=== PATIENT | female | born 1990 | race Caucasian/White ===

== ENCOUNTER 2023-09-13 13:22 | Emergency (ER) | payer MEDICAID ==
[2023-09-13 13:22] VITALS: TEMP 97
[2023-09-13 13:26] VITALS: BP 121/87; PULSE 81; RESP 16; O2SAT 99
[2023-09-13] MEDS: cefTRIAXone SOD 1,000 MG VL IM ONE (16:46)
[2023-09-13] MEDS: KETOROLAC TROMETH 30 MG/ML 1ML VIAL IM ONE (16:46)
[2023-09-13] MEDS ORDERED: AMOX875T4 PO (17:11)
== END 2023-09-13 17:12 | disposition home or self-care (01) ==
LOC: EEVIPCON 13:22 → ER 13:22
DX: K04.7 Periapical abscess without sinus (principal)
CPT/HCPCS: 96372; 99284; J0696; J1885

== ENCOUNTER 2023-09-14 14:49 | Emergency (ER) | payer MEDICAID ==
[~2023-09-14] VITALS: Ht 162.6 cm; Wt 59.4 kg
[~2023-09-14 14:49] MED LIST: AMOX875T4 PO
[2023-09-14 14:53] VITALS: BP 142/79; PULSE 107; RESP 18; TEMP 98.4; O2SAT 98
[2023-09-14] MEDS: KETOROLAC TROMETH 30 MG/ML 1ML VIAL IM ONE (17:08)
== END 2023-09-14 17:22 | disposition home or self-care (01) ==
LOC: ER 14:49 → EEVIPCON 14:49 → ER 17:22
DX: K04.7 Periapical abscess without sinus (principal); Z79.2 Long term (current) use of antibiotics
CPT/HCPCS: 96372; 99283; J1885

== ENCOUNTER 2024-06-03 10:26 | Emergency (ER) | payer MEDICAID ==
[~2024-06-03] VITALS: Ht 162.6 cm; Wt 54.7 kg
--- NOTE | 2024-06-03 11:15 | ED.PDOC ---
SOB-HPI HPI Comments A 34 YEAR OLD FEMALE PRESENTS TO THE ED WITH COMPLAINT OF COUGH AND CONGESTION. PATIENT STATES HE HAS BEEN EXPERIENCING COUGH, NASAL CONGESTION, AND A MILD SORE THROAT FOR THE PAST 5 DAYS. PATIENT REPORTS SHE HAS BEEN TAKING PNYJ-DFT-OSDUKIN MEDICATIONS WITH NO IMPROVEMENT. PATIENT DENIES FEVER, CHILLS, SHORTNESS OF BREATH, CHEST PAIN, ABDOMINAL PAIN, NAUSEA, VOMITING, HEADACHE, OR OTHER COMPLAINTS. NO OTHER SYMPTOMS OR MODIFYING FACTORS AT THIS TIME. PATIENT IS ALERT, ORIENTED X 4, AND HAS STEADY GAIT. Chief Complaint: Flu like Time Seen by MD: 10:32 Primary Care Provider: BLAISE Reviewed notes: Nurses Notes, Medications, Allergies Information Source: Patient Mode of Arrival: Ambulatory Severity: Moderate Timing: Days Duration: Since onset, Days Context: Spontaneous Onset PE Risk Factors: None History of: Recent URI Prehospital treatment: None Modifying Factors: Nothing Associated Signs and Symptoms: Cough, Nasal Congestion, Sore Throat If cough with SOB: Non-Productive Past Medical History PAST MEDICAL HISTORY: Denies Surgical History: Denies all surgeries BRAND STRATEGY MANAGER History: No Pertinent BRAND STRATEGY MANAGER History Family History Family History: Reviewed,noncontributory to illness, No family hx of Cancer, No family hx of DM, No family hx of Heart curt, No family hx of HTN, No family hx ofKidney curt, No family hx of Liver curt, No family hx of Lung curt, No family hx of Stroke Social History Smoker: Non-Smoker Alcohol: Denies ETOH Use Drugs: Denies Drug Use Lives In: Home Constitutional: denies: chills, diaphoresis, fatigue, fever, malaise, sweats, weakness, others EENTM: reports: nose congestion, throat pain; denies: blurred vision, double vision, ear bleeding, ear discharge, ear drainage, ear pain, ear ringing, eye pain, eye redness, hearing loss, mouth pain, mouth swelling, nasal discharge, nose bleeding, nose pain, photophobia, tearing, throat swelling, voice changes, others Respiratory: reports: cough; denies: hemoptysis, orthopnea, SOB at rest, shortness of breath, SOB with excertion, stridor, wheezing, others Cardiovascular: denies: chest pain, dizzy spells, diaphoresis, Dyspnea on exertion, edema, irregular heart beat, left arm pain, lightheadedness, palpitations, PND, syncope, others Gastrointestinal: denies: abdomen distended, abdominal pain, blood streaked bowels, constipated, diarrhea, dysphagia, difficulty swallowing, hematemesis, melena, nausea, poor appetite, poor fluid intake, rectal bleeding, rectal pain, vomiting, others Genitourinary: denies: abnormal vagina bleeding, burning, dyspareunia, dysuria, flank pain, frequency, hematuria, incontinence, pain, , vagina discharge, urgency, others Neurological: denies: dizziness, fainting, headache, left sided numbness, left sided weakness, numbness, paresthesia, pre-existing deficit, right sided numbness, right sided weakness, seizure, speech problems, tingling, tremors, weakness, others Musculoskeletal: denies: back pain, gout, joint pain, joint swelling, muscle pain, muscle stiffness, neck pain, others Integumetry: denies: bruises, change in color, change in hair/nails, dryness, laceration, lesions, lumps, rash, wounds, others Allergic/Immunocompromised: denies: Difficulty Healing, Frequent Infections, Hives, Itching, others Hematologic/Lymphatic: denies: anemia, blood clots, easy bleeding, easy bruising, swollen glands, others Endocrine: denies: excessive hunger, excessive sweating, excessive thirst, excessive urination, flushing, intolerance to cold, intolerance to heat, unexplained weight gain, unexplained weight loss, others Psychiatric: denies: anxiety, bipolar disorder, depression, hopeless, panic disorder, schizophrenia, sleepless, suicidal, others All Other Systems: Reviewed and Negative Physical Exam General Appearance: No Apparent Distress, Normal HEENT: PERRL/EOMI, Pharyngeal Erythema (VESICLE PHARYNX. ), TMs Normal Neck: Full Range of Motion, Non-Tender, Normal, Normal Inspection Respiratory: Chest Non-Tender, Expiration, No Accessory Muscle Use, No Respiratory Distress, Rhonchi Cardiovascular: No Edema, No JVD, No Murmur, No Gallop, Normal Peripheral Pulses, Regular Rate/Rhythm Breast Exam: Deferred Gastrointestinal: No Organomegaly, Non Tender, No Pulsatile Mass, Normal Bowel Sounds, Soft Genitalia: Deferred Pelvic: Deferred Rectal: Deferred Extremities: No calf tenderness, Normal capillary refill, Normal inspection, Normal range of motion, Non-tender, No pedal edema Musculoskeletal : Apperance: Normal Neurologic: Alert, security controls assessor II-XII nml as Tested, No Motor Deficits, Normal Affect, Normal Mood, No Sensory Deficits Cerebellar Function: Normal Reflexes: Normal Skin: Dry, Normal Color, Warm Peripheral Pulses: 2+ carotid (R), 2+ carotid (L) Lymphatic: No Adenopathy Was a procedure done? Was a procedure done?: No Differential Dx Differential Diagnosis: Bronchitis, Pneumonia, Sinusitis, Allergic Rhinitis, Otitis Media, Pharyngitis, URI, Other (COVID-19) X-Ray, Labs, Meds, VS Vital Signs Date Time Temp Pulse Resp B/P (MAP) Pulse Ox O2 Delivery O2 Flow Rate FiO2 06/03/24 11:23 98.1 118 16 123/81 (95) 98 Lab Test 06/03/24 11:20 Range/Units SARS-CoV-2 Antigen (Rapid) Negative NEGATIVE CHEST RADIOGRAPH Indication: COUGH Technique: Frontal and lateral view of the chest was obtained Comparison: None FINDINGS: Lines and Tubes: None Lungs: Clear Pleura: No effusion. No pneumothorax. Cardiomediastinal contours: Unremarkable Bones: Unremarkable IMPRESSION: No evidence of acute disease. ATED BY: NIGEL DE JESUS MD DICTATED DATE/TIME: 06/03/24 1141 SIGNED BY: NIGEL DE JESUS MD SIGNED DATE/TIME: 06/03/24 1141 CC: X-Ray, Labs, Meds, VS Comment LABS ORDERED: COVID-19 ANTIGEN REVIEWED AND INTERPRETED RESULTS: NEGATIVE Images Reviewed?: Images reviewed and evaluated by me Time of 1ST Reevaluation: 12:26 Reevaluation 1ST: Improved Patient Education/Counseling: Diagnosis, Treatment, Need For Follow Up Family Education/Counseling: Diagnosis, Treatment, Need For Follow Up Medical Screening: No EMC Exist At This Time Departure 1 Departure Time of Disposition: 12:26 Impression: Primary Impression: Acute bronchitis Qualified Codes: J20.9 - Acute bronchitis, unspecified Disposition: HOME / SELF CARE / HOMELESS Condition: Stable Additional Instructions: FOLLOW-UP WITH PCP IN 1 TO 2 DAYS. TAKE MEDICATIONS PRESCRIBED. RETURN TO ED FOR ANY NEW OR WORSENING SYMPTOMS. e-Prescriptions Promethazine-Dm (Promethazine Dm 6.25-15 mg/5Ml) 1 Gin Gin 5 ML PO TID, #180 ML Prov: ALEJANDRA STEVENS 06/03/24 Azithromycin (ZITHROMAX TABLET) 250 Mg Tb 250 MG PO DAILY, #6 TAB Prov: ALEJANDRA STEVENS 06/03/24 Discharged With: Self Critical Care Note Critical Care Time?: No Stability Stability form required: No Heart Score Heart Score: Heart Score Response (Comments) Value History N/A 0 EKG N/A 0 Age N/A 0 Risk Factors N/A 0 Troponin N/A 0 Total 0 I personally scribed for ALEJANDRA STEVENS ([email or web address]) on 06/03/24 at 11:15. Electronically submitted by Tacho Metz ([email or web address]). I personally scribed for ALEJANDRA STEVENS ([email or web address]) on 06/03/24 at 11:46. Electronically submitted by Tacho Metz ([email or web address]). I personally scribed for ALEJANDRA STEVENS ([email or web address]) on 06/03/24 at 11:57. Electronically submitted by Tacho Metz ([email or web address]). ALEJANDRA STEVENS Jun 03, 2024 11:15
[2024-06-03 11:23] VITALS: BP 123/81; PULSE 118; RESP 16; O2SAT 98
--- NOTE | 2024-06-03 11:45 | DVH ---
CHEST RADIOGRAPH Indication: COUGH Technique: Frontal and lateral view of the chest was obtained Comparison: None FINDINGS: Lines and Tubes: None Lungs: Clear Pleura: No effusion. No pneumothorax. Cardiomediastinal contours: Unremarkable Bones: Unremarkable IMPRESSION: No evidence of acute disease.
[2024-06-03 11:55] LABS: COVID19 ANTIGEN SOFIA FIA NEGATIVE (NEGATIVE)
[2024-06-03] MEDS ORDERED: AZIT-185 PO (12:00)
[2024-06-03] MEDS ORDERED: PROM1SOL4 PO (12:00)
== END 2024-06-03 12:02 | disposition home or self-care (01) ==
LOC: ER 10:26
DX: J20.9 Acute bronchitis, unspecified (principal); Z20.822 Contact with and (suspected) exposure to COVID-19
CPT/HCPCS: 36415; 71046; 87426

== ENCOUNTER 2024-12-02 20:46 | Emergency (ER) | payer MEDICAID ==
[~2024-12-02] VITALS: Ht 162.6 cm; Wt 55.4 kg
[~2024-12-02 20:46] MED LIST changes: +AZIT-185 PO; +PROM1SOL4 PO
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
[2024-12-02] MEDS: LIDOCAINE 1% HCL (LOCAL ANESTH.) INJ 20ML MDV IJ ONE (21:24)
[2024-12-02] MEDS: cefTRIAXone SOD 1,000 MG VL IM ONE (21:24)
[2024-12-02 21:45] VITALS: BP 110/77; PULSE 96; RESP 16; TEMP 98.2; O2SAT 98
[2024-12-02] MEDS ORDERED: AUG875T PO (22:02)
[2024-12-02] MEDS ORDERED: IBUP-1456 PO (22:02)
[2024-12-04 09:49] LABS: Hepatitis B Surface Antibody Negative (Negative)
[2024-12-04 10:07] LABS: Hepatitis B Surface Antigen Negative (Negative)
== END 2024-12-02 22:33 | disposition home or self-care (01) ==
LOC: EEVIPCON 20:46 → ER 20:46
DX: S51.052A Open bite, left elbow, initial encounter (principal); Z79.899 Other long term (current) drug therapy; W50.3XXA Accidental bite by another person, initial encounter; Y93.89 Activity, other specified; Y92.89 Other specified places as the place of occurrence of the external cause; Y99.8 Other external cause status
CPT/HCPCS: 36415; 86703; 86706; 86803; 87340; 96372; 99283; J0696